=== PATIENT | female | born 1985 | race Caucasian/White ===

== ENCOUNTER 2018-04-18 16:19 | Emergency (ER) | payer OTHER ==
[~2018-04-18] VITALS: Ht 177.8 cm; Wt 147.0 kg
[~2018-04-18 16:19] MED LIST: Bactrim Ds Tab1 EACH PO; LOSA50 PO; Metformin HCl500 M1 PO; OLAN10 PO; SERT50 PO
[2018-04-18] MEDS ORDERED: NEOPOLHCSU RIGHTEAR (16:31)
== END 2018-04-18 16:35 | disposition home or self-care (01) ==
LOC: ER 16:19
DX: H60.91 Unspecified otitis externa, right ear (principal); Z79.899 Other long term (current) drug therapy; Z79.84 Long term (current) use of oral hypoglycemic drugs
CPT/HCPCS: 99282

== ENCOUNTER 2024-01-25 20:39 | Emergency (ER) | payer OTHER ==
[~2024-01-25] VITALS: Ht 172.7 cm; Wt 139.7 kg
[~2024-01-25 20:39] MED LIST changes: +NEOPOLHCSU RIGHTEAR
[2024-01-25 20:58] VITALS: BP 159/90
== END 2024-01-25 23:00 | disposition home or self-care (01) ==
LOC: ER 20:39
DX: I83.891 Varicose veins of right lower extremity with other complications (principal); Z79.84 Long term (current) use of oral hypoglycemic drugs; Z79.899 Other long term (current) drug therapy
CPT/HCPCS: 99283